=== PATIENT | female | born 1965 | race African-American/Black ===

== ENCOUNTER 2023-05-15 13:33 | Emergency (ER) | payer MEDICAID ==
[~2023-05-15] VITALS: Ht 162.6 cm; Wt 144.0 kg
[2023-05-15 13:40] VITALS: O2SAT 97
[2023-05-15] MEDS ORDERED: KETOROLAC 60MG/2ML VIAL IM STA (14:41)
[2023-05-15 16:01] LABS: BASOPHILS % 0.7 % (0.0-2.0); EOSINOPHILS % 1.8 % (0.0-5.0); HEMATOCRIT. 33.4 % (36.0-48.0); HEMOGLOBIN. 10.9 g/dL (12.0-16.0); LYMPHOCYTES % 16.1 % (20.0-50.0); MEAN CORPUSCULAR HEMOGLOBIN 30.5 pg (28.0-32.0); MEAN CORPUSCULAR HGB CONC 32.5 g/dL (31.0-37.0); MEAN CORPUSCULAR VOLUME 93.8 fL (81.0-99.0); MEAN PLATELET VOLUME 9.7 fl (7.4-10.4); MONOCYTES % 11.9 % (2.0-8.0); NEUTROPHILS % 69.5 % (40.0-76.0); PLATELET 305 x1000/uL (130-400); RED BLOOD CELL COUNT 3.57 mill/uL (4.2-5.4); RED CELL DISTRIBUTION WIDTH 13.4 % (11.6-14.6); WHITE BLOOD COUNT 8.3 x1000/uL (4.5-11.0)
[2023-05-15 16:31] LABS: ALANINE AMINOTRANSFERASE 24 IU/L (10-49); ALBUMIN 3.5 g/dL (3.2-4.8); ASPARTATE AMINOTRANSFERASE 23 IU/L (<34); BILIRUBIN TOTAL 0.6 mg/dL (0.1-1.0); CALCIUM 11.7 mg/dL (8.7-10.4); CARBON DIOXIDE 25 mEq/L (21-32); CHLORIDE 106 mEq/L (98-107); CREATININE 1.7 mg/dL (0.6-1.0); GLUCOSE 124 mg/dL (70-105); POTASSIUM 3.9 mEq/L (3.5-5.1); PROTEIN TOTAL 7.3 g/dL (6.0-8.3); SODIUM 139 mEq/L (136-145); UREA NITROGEN BLOOD 19 mg/dL (9-23)
[2023-05-15] MEDS ORDERED: SODIUM CHLORIDE 0.9% 1,000 ML IV ONE (17:15)
[2023-05-15 19:18] LABS: CLARITY URINE TURBID (CLEAR); COLOR URINE YELLOW (YELLOW); GLUCOSE URINE NEGATIVE (NEGATIVE); KETONES URINE NEGATIVE (NEGATIVE); LEUKOCYTE ESTERASE URINE 2+ (NEGATIVE); NITRITE URINE NEGATIVE (NEGATIVE); OCCULT BLOOD URINE 1+ (NEGATIVE); PROTEIN URINE 2+ (NEGATIVE); SPECIFIC GRAVITY URINE 1.021 (1.005-1.030)
[2023-05-15 19:56] LABS: BACTERIA URINE 1+; RBC URINE 0-2 /hpf (0-2); SQUAMOUS EPITHELIAL CELL URINE 2+ /lpf (RARE/1+)
[2023-05-15 20:26] VITALS: BP 149/89; PULSE 92; RESP 16; TEMP 98.9
[2023-05-15] MEDS ORDERED: LIDOCAINE HCL 1% 20ML VIAL (Pyxis) INJ INFIL ONE (20:30)
[2023-05-15] MEDS ORDERED: CEFTRIAXONE SODIUM 1 G/VIAL IM ONE (20:30)
[2023-05-15] MEDS ORDERED: CIPR500T5 MT (20:31)
[2023-05-15] MEDS ORDERED: IBUP-2028 MT (20:31)
[2023-05-15] MEDS ORDERED: TAMS-11 MT (20:31)
== END 2023-05-15 19:00 | disposition home or self-care (01) ==
LOC: ER 13:33 → EDBEDREQ 17:13 → ER 19:00 → CANBEDREQ 05-16 14:15
DX: N23 Unspecified renal colic (principal); N20.0 Calculus of kidney; R11.2 Nausea with vomiting, unspecified; N39.0 Urinary tract infection, site not specified; E11.9 Type 2 diabetes mellitus without complications; I10 Essential (primary) hypertension
CPT/HCPCS: 80053; 81003; 83690; 85025; 36415; 74176; 96372; 99285; 83970; J0696; J1885; J3490; J7030; Z7610

== ENCOUNTER 2023-06-04 18:36 | Inpatient (IN) | payer OTHER ==
[~2023-06-04] VITALS: Ht 162.6 cm; Wt 138.0 kg
[~2023-06-04 18:36] MED LIST: CIPR500T5 MT; IBUP-2028 MT; TAMS-11 MT
[2023-06-04] MEDS ORDERED: ONDANSETRON HCL 4MG/2ML INJ IV STA (19:03)
[2023-06-04] MEDS ORDERED: MORPHINE SULFATE 4 MG/ML CPJ (NOT FOR IM USE) IV STA (19:03)
[2023-06-04] MEDS ORDERED: DILTIAZEM HCL 60MG TABLET PO ONE (19:15)
[2023-06-04] MEDS ORDERED: SODIUM CHLORIDE 0.9% 1,000 ML IV ONE (19:15)
[2023-06-04 19:52] LABS: BASOPHILS % 0.3 % (0.0-2.0); EOSINOPHILS % 0.7 % (0.0-5.0); HEMATOCRIT. 34.9 % (36.0-48.0); HEMOGLOBIN. 11.5 g/dL (12.0-16.0); LYMPHOCYTES % 9.6 % (20.0-50.0); MEAN CORPUSCULAR HEMOGLOBIN 30.2 pg (28.0-32.0); MEAN CORPUSCULAR HGB CONC 32.9 g/dL (31.0-37.0); MEAN CORPUSCULAR VOLUME 91.7 fL (81.0-99.0); MEAN PLATELET VOLUME 9.6 fl (7.4-10.4); MONOCYTES % 10.6 % (2.0-8.0); NEUTROPHILS % 78.8 % (40.0-76.0); PLATELET 260 x1000/uL (130-400); RED CELL DISTRIBUTION WIDTH 13.6 % (11.6-14.6)
[2023-06-04 21:24] LABS: ALANINE AMINOTRANSFERASE 50 IU/L (10-49); ALBUMIN 3.5 g/dL (3.2-4.8); ASPARTATE AMINOTRANSFERASE 84 IU/L (<34); BILIRUBIN TOTAL 0.9 mg/dL (0.1-1.0); CALCIUM 12.8 mg/dL (8.7-10.4); CARBON DIOXIDE 24 mEq/L (21-32); CHLORIDE 103 mEq/L (98-107); GLUCOSE 186 mg/dL (70-105); POTASSIUM 3.5 mEq/L (3.5-5.1); PROTEIN TOTAL 7.1 g/dL (6.0-8.3); SODIUM 138 mEq/L (136-145); UREA NITROGEN BLOOD 21 mg/dL (9-23)
[2023-06-04 21:40] LABS: TROPONIN I HIGH SENSITIVITY 84 ng/L (3.0-34)
[2023-06-04 21:48] LABS: CREATINE KINASE 1794 IU/L (34-145)
[2023-06-05] VITALS (7 sets, daily range): BP systolic 130–148; BP diastolic 53–81; PULSE 73–91; RESP 16–24; TEMP 96.5–98.8; O2SAT 97
[2023-06-05] MEDS ORDERED: ASPIRIN 81MG TABLET PO ONE (00:45)
[2023-06-05] MEDS ORDERED: SODIUM CHLORIDE 0.9% 1,000 ML IV ONE (00:45)
[2023-06-05] MEDS ORDERED: ONDANSETRON HCL 4MG/2ML INJ IV PRN (04:30)
[2023-06-05] MEDS ORDERED: DEXTROSE 50% WATER 50ML SYRINGE IV PRN (04:30)
[2023-06-05] MEDS ORDERED: ACETAMINOPHEN 325MG TABLET PO PRN (04:30)
[2023-06-05] MEDS: BLOOD SUGAR DIAGNOSTIC STRIP TEST SCH ×4 (06:50→21:00)
[2023-06-05] MEDS: INSULIN LISPRO 100 UNITS/ML SUBCUT SCH ×4 (07:15→22:28)
[2023-06-05 08:07] LABS: BASOPHILS % 0.5 % (0.0-2.0); EOSINOPHILS % 2.7 % (0.0-5.0); HEMATOCRIT. 33.4 % (36.0-48.0); HEMOGLOBIN. 10.8 g/dL (12.0-16.0); LYMPHOCYTES % 17.4 % (20.0-50.0); MEAN CORPUSCULAR HEMOGLOBIN 30.5 pg (28.0-32.0); MEAN CORPUSCULAR HGB CONC 32.3 g/dL (31.0-37.0); MEAN CORPUSCULAR VOLUME 94.1 fL (81.0-99.0); MEAN PLATELET VOLUME 10.1 fl (7.4-10.4); MONOCYTES % 13.2 % (2.0-8.0); NEUTROPHILS % 66.2 % (40.0-76.0); PLATELET 235 x1000/uL (130-400); RED BLOOD CELL COUNT 3.54 mill/uL (4.2-5.4); RED CELL DISTRIBUTION WIDTH 13.8 % (11.6-14.6); WHITE BLOOD COUNT 9.5 x1000/uL (4.5-11.0)
[2023-06-05] MEDS: ENOXAPARIN 40MG/0.4ML SYR SUBCUT SCH ×2 (08:54→21:34)
[2023-06-05] MEDS: LEVETIRACETAM 500MG TABLET PO SCH ×2 (08:54→21:33)
[2023-06-05] MEDS ORDERED: ASPIRIN 81MG TABLET PO SCH (09:00)
[2023-06-05] MEDS ORDERED: AMLODIPINE 5MG TABLET PO SCH (09:00)
[2023-06-05 10:48] LABS: CALCIUM 12.5 mg/dL (8.7-10.4); CREATININE 2.1 mg/dL (0.6-1.0); POTASSIUM 3.9 mEq/L (3.5-5.1)
[2023-06-05 13:29] LABS: CREATINE KINASE 605 IU/L (34-145)
[2023-06-05] MEDS ORDERED: SODIUM CHLORIDE 0.45% 1,000 ML IV SCH (14:00)
[2023-06-05 14:36] LABS: TROPONIN I HIGH SENSITIVITY 2673 ng/L (3.0-34)
[2023-06-05] MEDS: NITROGLYCERIN OINT 1GM/INCH UDPKT TD SCH ×2 (17:40→21:35)
[2023-06-05 18:06] LABS: *AMPHETAMINES SCREEN URINE NEGATIVE (NEGATIVE); *BARBITURATES SCREEN URINE NEGATIVE (NEGATIVE); *BENZODIAZEPINES SCREEN URINE NEGATIVE (NEGATIVE); *COCAINE SCREEN URINE NEGATIVE (NEGATIVE); CANNABINOID URINE SCREEN NEGATIVE (NEGATIVE); ECSTASY MDMA SCREEN URINE NEGATIVE (NEGATIVE); METHADONE URINE SCREEN Neg (NEGATIVE); OPIATES URINE SCREEN PRESUMPTIVE POSITIVE (NEGATIVE); PHENCYCLIDINE URINE SCREEN NEGATIVE (NEGATIVE)
[2023-06-05] MEDS ORDERED: ATORVASTATIN CALCIUM 20MG TABLET PO SCH (21:00)
== END 2023-06-06 02:30 | disposition short-term general hospital (02) | DRG 558 ==
LOC: ER 18:36 → EDBEDREQ 06-05 00:46 → MICUSO 06-05 02:14 → 3WST 06-05 03:09
PROVIDERS: ADMIT Internal Medicine; ATTEND Internal Medicine
DX: M62.82 Rhabdomyolysis (principal); I5A Non-ischemic myocardial injury (non-traumatic); Z68.43 Body mass index [BMI] 50.0-59.9, adult; N17.9 Acute kidney failure, unspecified; D64.9 Anemia, unspecified; E11.65 Type 2 diabetes mellitus with hyperglycemia; E66.01 Morbid (severe) obesity due to excess calories; E78.00 Pure hypercholesterolemia, unspecified; G40.909 Epilepsy, unspecified, not intractable, without status epilepticus; Z20.822 Contact with and (suspected) exposure to COVID-19; I10 Essential (primary) hypertension; N28.9 Disorder of kidney and ureter, unspecified; R74.01 Elevation of levels of liver transaminase levels; Z79.82 Long term (current) use of aspirin; Z86.73 Personal history of transient ischemic attack (TIA), and cerebral infarction without residual deficits; Z91.148 Patient's other noncompliance with medication regimen for other reason; Z79.899 Other long term (current) drug therapy
CPT/HCPCS: 36415; 71045; 72192; 73552; 73560; 80048; 80053; 80061; 80305; 82550; 82962; 83036; 84145; 84484; 85025; 87426; 93005; 97166; 97535; 99285; J1650; J1815; J2270; J2405; J7030

== ENCOUNTER 2023-09-10 20:16 | Inpatient (IN) | payer OTHER ==
[~2023-09-10] VITALS: Ht 162.6 cm; Wt 113.4 kg
[2023-09-10] MEDS: IBUPROFEN 600MG TABLET PO ONE (21:09)
[2023-09-11 00:18] LABS: HEMATOCRIT. 44.8 % (36.0-48.0); HEMOGLOBIN. 14.3 g/dL (12.0-16.0); MEAN CORPUSCULAR HEMOGLOBIN 30.9 pg (28.0-32.0); MEAN CORPUSCULAR HGB CONC 31.9 g/dL (31.0-37.0); MEAN CORPUSCULAR VOLUME 96.9 fL (81.0-99.0); MEAN PLATELET VOLUME 9.9 fl (7.4-10.4); PLATELET 184 x1000/uL (130-400); RED BLOOD CELL COUNT 4.62 mill/uL (4.2-5.4); RED CELL DISTRIBUTION WIDTH 16.4 % (11.6-14.6); WHITE BLOOD COUNT 8.7 x1000/uL (4.5-11.0)
[2023-09-11 00:29] LABS: INR 1.1; PARTIAL THROMBOPLASTIN TIME 21.8 sec (23.4-31.0); PROTHROMBIN TIME 11.9 sec (9.6-11.0)
[2023-09-11 00:30] LABS: DIFFERENTIAL COMMENT 1
[2023-09-11 00:34] LABS: ALANINE AMINOTRANSFERASE 7 IU/L (10-49); ASPARTATE AMINOTRANSFERASE 16 IU/L (<34); CARBON DIOXIDE 19 mEq/L (21-32); CHLORIDE 111 mEq/L (98-107); CREATINE KINASE 72 IU/L (34-145); GLUCOSE 67 mg/dL (70-105); POTASSIUM 4.2 mEq/L (3.5-5.1); SODIUM 140 mEq/L (136-145); UREA NITROGEN BLOOD 49 mg/dL (9-23)
[2023-09-11 00:44] LABS: CREATININE 4.5 mg/dL (0.6-1.0); PROTEIN TOTAL 9.2 g/dL (6.0-8.3)
[2023-09-11 00:46] LABS: CALCIUM 14.6 mg/dL (8.7-10.4)
[2023-09-11] MEDS: SODIUM CHLORIDE 0.9% 1,000 ML IV ONE (01:13)
[2023-09-11 01:37] LABS: PLATELET ESTIMATE NORMAL
[2023-09-11 08:00] VITALS: BP 146/92; TEMP 98.6
[2023-09-11] MEDS ORDERED: DEXTROSE 50% WATER 50ML SYRINGE IV PRN (08:45)
[2023-09-11] MEDS: HYDRALAZINE 20MG/ML VIAL IV PRN (08:59)
[2023-09-11] MEDS: DEXTROSE 50% WATER 50ML SYRINGE IV PRN (08:59)
[2023-09-11] MEDS ORDERED: NALOXONE HCL 0.4MG/ML VIAL IV PRN (09:00)
[2023-09-11] MEDS: HYDROCODONE/ACETAMINOPHEN 5/325MG TABLET PO PRN (09:35)
[2023-09-11] MEDS ORDERED: ACETAMINOPHEN 325MG TABLET PO PRN (10:45)
[2023-09-11] MEDS ORDERED: DOCUSATE SODIUM 100MG CAPSULE PO PRN (10:45)
[2023-09-11] MEDS ORDERED: LEVETIRACETAM 500 MG in SODIUM CHLORIDE 0.9% 100 ML IV SCH (10:45)
[2023-09-11] MEDS ORDERED: IPRATROPIUM/ALBUTEROL 0.5-3(2.5)MG/3ML NEB HHN PRN (10:45)
[2023-09-11 10:51] VITALS: BP 132/85; PULSE 70; RESP 18; TEMP 98.5
[2023-09-11 12:00] VITALS: BP 132/85; TEMP 98.6
[2023-09-11] MEDS: INSULIN LISPRO 100 UNITS/ML SUBCUT SCH (12:10)
[2023-09-11] MEDS: BLOOD SUGAR DIAGNOSTIC STRIP TEST SCH (12:32)
[2023-09-11] MEDS: DEXT 5%/0.45% NACL 1000ML 1,000 ML IV SCH ×2 (13:18→20:00)
[2023-09-11] MEDS: LEVETIRACETAM 500MG PREMIX 100 ML IV SCH (13:18)
[2023-09-11] MEDS: ASPIRIN 81MG TABLET PO SCH (13:18)
[2023-09-11] MEDS: PAMIDRONATE DISODIUM 30 MG in SODIUM CHLORIDE 0.9% 500 ML IV NR (14:00)
[2023-09-11] MEDS: HYDRALAZINE HCL 50MG TABLET PO SCH (14:00)
[2023-09-11 16:00] VITALS: BP 104/66; TEMP 98.5
[2023-09-11] MEDS: PANTOPRAZOLE SODIUM 40 MG/VIAL IV SCH (16:15)
[2023-09-11 16:18] LABS: BASOPHILS % 0.3 % (0.0-2.0); EOSINOPHILS % 3.6 % (0.0-5.0); HEMATOCRIT. 40.3 % (36.0-48.0); HEMOGLOBIN. 12.8 g/dL (12.0-16.0); LYMPHOCYTES % 11.2 % (20.0-50.0); MEAN CORPUSCULAR HEMOGLOBIN 30.4 pg (28.0-32.0); MEAN CORPUSCULAR HGB CONC 31.9 g/dL (31.0-37.0); MEAN CORPUSCULAR VOLUME 95.3 fL (81.0-99.0); MONOCYTES % 14.9 % (2.0-8.0); PLATELET 167 x1000/uL (130-400); RED BLOOD CELL COUNT 4.23 mill/uL (4.2-5.4); RED CELL DISTRIBUTION WIDTH 16.3 % (11.6-14.6); WHITE BLOOD COUNT 8.1 x1000/uL (4.5-11.0)
[2023-09-11 16:31] LABS: ALANINE AMINOTRANSFERASE < 7 IU/L (10-49); ALBUMIN 3.5 g/dL (3.2-4.8); ASPARTATE AMINOTRANSFERASE 14 IU/L (<34); BILIRUBIN TOTAL 0.7 mg/dL (0.1-1.0); CARBON DIOXIDE 18 mEq/L (21-32); CHLORIDE 112 mEq/L (98-107); CHOLESTEROL 161 mg/dL (<200); CREATININE 4.8 mg/dL (0.6-1.0); GLUCOSE 71 mg/dL (70-105); HDL CHOLESTEROL 49 mg/dL (>65); LDL CHOLESTEROL 72 mg/dL (5-100); PHOSPHORUS 2.6 mg/dL (2.5-4.9); POTASSIUM 4.3 mEq/L (3.5-5.1); PROTEIN TOTAL 8.3 g/dL (6.0-8.3); SODIUM 140 mEq/L (136-145); T4 FREE 1.08 ng/dL (0.89-1.76); THYROID STIMULATING HORMONE 0.62 uIU/mL (0.55-4.78); TRIGLYCERIDE 148 mg/dL (0-150); UREA NITROGEN BLOOD 44 mg/dL (9-23)
[2023-09-11 16:35] LABS: CALCIUM 14.1 mg/dL (8.7-10.4)
[2023-09-11] MEDS ORDERED: ENOXAPARIN 30MG/0.3ML SYR SUBCUT SCH (18:00)
[2023-09-11 20:00] VITALS: BP 147/76; PULSE 80; RESP 20; TEMP 96.6
[2023-09-11 21:48] LABS: CLARITY URINE CLOUDY (CLEAR); COLOR URINE DARK YELLOW (YELLOW); GLUCOSE URINE NEGATIVE (NEGATIVE); KETONES URINE TRACE (NEGATIVE); LEUKOCYTE ESTERASE URINE 2+ (NEGATIVE); NITRITE URINE NEGATIVE (NEGATIVE); OCCULT BLOOD URINE 1+ (NEGATIVE); PROTEIN URINE 1+ (NEGATIVE); SPECIFIC GRAVITY URINE 1.019 (1.005-1.030)
[2023-09-11 22:06] LABS: *AMPHETAMINES SCREEN URINE NEGATIVE (NEGATIVE); *BARBITURATES SCREEN URINE NEGATIVE (NEGATIVE); *BENZODIAZEPINES SCREEN URINE NEGATIVE (NEGATIVE); *COCAINE SCREEN URINE NEGATIVE (NEGATIVE); CANNABINOID URINE SCREEN NEGATIVE (NEGATIVE); ECSTASY MDMA SCREEN URINE NEGATIVE (NEGATIVE); METHADONE URINE SCREEN Neg (NEGATIVE); OPIATES URINE SCREEN NEGATIVE (NEGATIVE); PHENCYCLIDINE URINE SCREEN NEGATIVE (NEGATIVE)
[2023-09-11 22:13] LABS: BACTERIA URINE TRACE; CALCIUM PHOSPHATE CRYSTALS UR 2+ /lpf; SQUAMOUS EPITHELIAL CELL URINE FEW /lpf (RARE/1+)
[2023-09-11] MEDS: TAMSULOSIN HCL 0.4MG SR CAPSULE PO SCH (22:55)
[2023-09-11] MEDS: ATORVASTATIN CALCIUM 40MG TABLET PO SCH (22:56)
[2023-09-12] VITALS (7 sets, daily range): BP systolic 117–140; BP diastolic 37–81; PULSE 83–96; RESP 18–20; TEMP 96.2–98.6
[2023-09-12 06:48] LABS: BASOPHILS % 0.5 % (0.0-2.0); EOSINOPHILS % 4.5 % (0.0-5.0); HEMATOCRIT. 39.6 % (36.0-48.0); HEMOGLOBIN. 12.5 g/dL (12.0-16.0); LYMPHOCYTES % 24.5 % (20.0-50.0); MEAN CORPUSCULAR HEMOGLOBIN 30.7 pg (28.0-32.0); MEAN CORPUSCULAR HGB CONC 31.6 g/dL (31.0-37.0); MEAN PLATELET VOLUME 10.1 fl (7.4-10.4); MONOCYTES % 13.6 % (2.0-8.0); NEUTROPHILS % 56.9 % (40.0-76.0); PLATELET 153 x1000/uL (130-400); RED BLOOD CELL COUNT 4.08 mill/uL (4.2-5.4); WHITE BLOOD COUNT 6.3 x1000/uL (4.5-11.0)
[2023-09-12 07:28] LABS: CREATININE 4.7 mg/dL (0.6-1.0); POTASSIUM 4.2 mEq/L (3.5-5.1)
[2023-09-12] MEDS ORDERED: LIDOCAINE HCL 1% 10 MG/ML 10ML VIAL ONE (07:44)
[2023-09-12 07:58] LABS: CALCIUM 13.6 mg/dL (8.7-10.4)
[2023-09-12] MEDS: ENOXAPARIN 40MG/0.4ML SYR SUBCUT SCH (09:00)
[2023-09-12 12:33] LABS: CREATINE KINASE 20 IU/L (34-145)
[2023-09-12] MEDS: ENOXAPARIN 80MG/0.8ML SYR SUBCUT NR (12:43)
[2023-09-12] MEDS: PAMIDRONATE DISODIUM 30 MG in SODIUM CHLORIDE 0.9% 500 ML IV NR (13:18)
[2023-09-13 00:37] VITALS: BP 136/70; PULSE 96; RESP 18; TEMP 98.7
[2023-09-13 04:00] VITALS: BP 132/72; PULSE 88; RESP 19; TEMP 98.6
[2023-09-13 08:00] VITALS: BP 162/74; PULSE 88; RESP 19; TEMP 97.2
[2023-09-13] MEDS: ENOXAPARIN 120MG/0.8ML SYR SUBCUT SCH (08:11)
[2023-09-13] MEDS: FAMOTIDINE 20MG TABLET PO SCH (08:11)
[2023-09-13] MEDS: CLONIDINE 0.1MG TABLET PO PRN (08:11)
[2023-09-13] MEDS ORDERED: FAMOTIDINE 20MG/2ML VIAL IV SCH (09:00)
[2023-09-13 09:40] LABS: HEMATOCRIT. 36.4 % (36.0-48.0); HEMOGLOBIN. 11.5 g/dL (12.0-16.0); MEAN CORPUSCULAR HEMOGLOBIN 30.6 pg (28.0-32.0); MEAN CORPUSCULAR HGB CONC 31.7 g/dL (31.0-37.0); MEAN CORPUSCULAR VOLUME 96.4 fL (81.0-99.0); PLATELET 151 x1000/uL (130-400); RED BLOOD CELL COUNT 3.78 mill/uL (4.2-5.4); RED CELL DISTRIBUTION WIDTH 16.6 % (11.6-14.6); WHITE BLOOD COUNT 4.9 x1000/uL (4.5-11.0)
[2023-09-13 09:49] LABS: DIFFERENTIAL COMMENT 1
[2023-09-13 10:05] LABS: ALANINE AMINOTRANSFERASE < 7 IU/L (10-49); ALBUMIN 2.9 g/dL (3.2-4.8); ASPARTATE AMINOTRANSFERASE 10 IU/L (<34); BILIRUBIN TOTAL 0.6 mg/dL (0.1-1.0); CALCIUM 12.2 mg/dL (8.7-10.4); CARBON DIOXIDE 19 mEq/L (21-32); CHLORIDE 112 mEq/L (98-107); GLUCOSE 111 mg/dL (70-105); POTASSIUM 3.7 mEq/L (3.5-5.1); PROTEIN TOTAL 6.5 g/dL (6.0-8.3); SODIUM 139 mEq/L (136-145); UREA NITROGEN BLOOD 39 mg/dL (9-23)
[2023-09-13 12:00] VITALS: BP 148/75; PULSE 83; RESP 18; TEMP 96.9
[2023-09-13 16:00] VITALS: BP_SYST 116; BP_SYST 128; BP_DIAS 60; BP_DIAS 88; PULSE 82; RESP 16; TEMP 96.9
[2023-09-13 20:00] VITALS: BP 170/93; PULSE 92; RESP 20; TEMP 98.8
[2023-09-13 20:01] LABS: ANISOCYTOSIS 1+; PLATELET ESTIMATE NORMAL
[2023-09-14 00:10] VITALS: BP 130/68; PULSE 62; RESP 20; TEMP 98.7
[2023-09-14 04:00] VITALS: BP 151/84; PULSE 94; RESP 20; TEMP 97.6
[2023-09-14 07:03] LABS: HEMATOCRIT. 32.5 % (36.0-48.0); HEMOGLOBIN. 10.6 g/dL (12.0-16.0); MEAN CORPUSCULAR HEMOGLOBIN 30.4 pg (28.0-32.0); MEAN CORPUSCULAR HGB CONC 32.6 g/dL (31.0-37.0); MEAN CORPUSCULAR VOLUME 93.4 fL (81.0-99.0); MEAN PLATELET VOLUME 9.6 fl (7.4-10.4); PLATELET 152 x1000/uL (130-400); RED BLOOD CELL COUNT 3.47 mill/uL (4.2-5.4); RED CELL DISTRIBUTION WIDTH 16.3 % (11.6-14.6); WHITE BLOOD COUNT 5.3 x1000/uL (4.5-11.0)
[2023-09-14 07:10] LABS: DIFFERENTIAL COMMENT 1
[2023-09-14 07:17] LABS: CALCIUM 11.9 mg/dL (8.7-10.4); CREATININE 3.6 mg/dL (0.6-1.0); POTASSIUM 3.4 mEq/L (3.5-5.1)
[2023-09-14 08:00] VITALS: BP 142/77; PULSE 87; RESP 20; TEMP 98.1
[2023-09-14] MEDS: ONDANSETRON HCL 4MG/2ML INJ IV PRN (11:13)
[2023-09-14] MEDS: POTASSIUM CHLORIDE 20MEQ TABLET SR PO NR (12:48)
[2023-09-14 16:00] VITALS: BP_SYST 138; BP_SYST 159; BP_DIAS 69; BP_DIAS 85; PULSE 88; PULSE 91; RESP 20; TEMP 97.9; TEMP 98.6
[2023-09-14 20:00] VITALS: BP 156/75; PULSE 84; RESP 18; TEMP 98
[2023-09-14 21:58] LABS: ANISOCYTOSIS 1+; PLATELET ESTIMATE NORMAL
[2023-09-15] VITALS (7 sets, daily range): BP systolic 114–196; BP diastolic 62–116; PULSE 72–126; RESP 16–18; TEMP 97.8–98.8
[2023-09-15] MEDS: ENOXAPARIN 120MG/0.8ML SYR SUBCUT SCH (08:51)
[2023-09-15 14:09] LABS: A/G RATIO 0.6 (0.7-1.7); ALBUMIN 2.7 g/dL (2.9-4.4); ALPHA-1-GLOBULIN 0.3 g/dL (0.0-0.4); ALPHA-2-GLOBULIN 0.8 g/dL (0.4-1.0); BETA GLOBULIN 1.5 g/dL (0.7-1.3); GLOBULIN TOTAL 4.7 g/dL (2.2-3.9); M-SPIKE Not Observed g/dL (Not Observed); TOTAL PROTEIN SERUM 7.4 g/dL (6.0-8.5)
[2023-09-15 16:08] LABS: HEMATOCRIT. 32.1 % (36.0-48.0); HEMOGLOBIN. 10.5 g/dL (12.0-16.0); MEAN CORPUSCULAR HEMOGLOBIN 31.1 pg (28.0-32.0); MEAN CORPUSCULAR HGB CONC 32.6 g/dL (31.0-37.0); MEAN CORPUSCULAR VOLUME 95.4 fL (81.0-99.0); PLATELET 156 x1000/uL (130-400); RED BLOOD CELL COUNT 3.37 mill/uL (4.2-5.4); WHITE BLOOD COUNT 5.8 x1000/uL (4.5-11.0)
[2023-09-15 16:11] LABS: DIFFERENTIAL COMMENT 1
[2023-09-15 16:28] LABS: CALCIUM 10.9 mg/dL (8.7-10.4); CREATININE 3.1 mg/dL (0.6-1.0); POTASSIUM 3.6 mEq/L (3.5-5.1)
[2023-09-15 16:31] LABS: PLATELET ESTIMATE NORMAL
[2023-09-15] MEDS: HYDRALAZINE 20MG/ML VIAL IV NR (17:09)
[2023-09-16] VITALS: BP 152/74; PULSE 98; RESP 16; TEMP 97.7
[2023-09-16 04:00] VITALS: BP 156/87; PULSE 96; RESP 18; TEMP 97.9
[2023-09-16 06:34] LABS: HEMATOCRIT. 32.6 % (36.0-48.0); HEMOGLOBIN. 10.6 g/dL (12.0-16.0); MEAN CORPUSCULAR HEMOGLOBIN 30.5 pg (28.0-32.0); MEAN CORPUSCULAR HGB CONC 32.5 g/dL (31.0-37.0); MEAN CORPUSCULAR VOLUME 93.9 fL (81.0-99.0); MEAN PLATELET VOLUME 9.6 fl (7.4-10.4); PLATELET 173 x1000/uL (130-400); RED BLOOD CELL COUNT 3.47 mill/uL (4.2-5.4); RED CELL DISTRIBUTION WIDTH 16.8 % (11.6-14.6); WHITE BLOOD COUNT 5.7 x1000/uL (4.5-11.0)
[2023-09-16 07:05] LABS: CALCIUM 10.8 mg/dL (8.7-10.4); POTASSIUM 3.7 mEq/L (3.5-5.1)
[2023-09-16 07:18] LABS: DIFFERENTIAL COMMENT 1
[2023-09-16 08:00] VITALS: BP 137/70; PULSE 97; RESP 18; TEMP 98.1
[2023-09-16] MEDS: SODIUM BICARBONATE 8.4% 1 MEQ/ML 50ML SYR IV NR (11:27)
[2023-09-16] MEDS: CEFTRIAXONE 1GM/50ML 50 ML IV SCH (11:40)
[2023-09-16 12:00] VITALS: BP 143/80; PULSE 103; RESP 20; TEMP 97.9
[2023-09-16 16:00] VITALS: BP 120/75; PULSE 97; RESP 18; TEMP 96.2
[2023-09-16 16:59] LABS: ANISOCYTOSIS 1+; PLATELET ESTIMATE NORMAL
[2023-09-16 20:00] VITALS: BP 176/91; PULSE 94; RESP 18; TEMP 97.2
[2023-09-17] VITALS: BP 149/63; PULSE 98; RESP 19; TEMP 97.7
[2023-09-17 08:00] VITALS: BP 158/67; PULSE 89; RESP 18; TEMP 97.8
[2023-09-17] MEDS ORDERED: PROPOFOL 200MG/20ML VIAL IV ONE ×2 (08:54)
[2023-09-17] MEDS ORDERED: LIDOCAINE HCL 1% 10 MG/ML 10ML VIAL ONE ×2 (08:54→08:56)
[2023-09-17] MEDS: HYDRALAZINE 20MG/ML VIAL IV PRN (09:50)
[2023-09-17] MEDS ORDERED: ONDANSETRON HCL 4MG/2ML INJ IV PRN (10:00)
[2023-09-17 12:00] VITALS: BP 162/84; PULSE 92; RESP 20; TEMP 97.6
[2023-09-17 13:18] LABS: HEMOGLOBIN. 10.3 g/dL (12.0-16.0); MEAN CORPUSCULAR HEMOGLOBIN 30.2 pg (28.0-32.0); MEAN CORPUSCULAR HGB CONC 32.1 g/dL (31.0-37.0); MEAN CORPUSCULAR VOLUME 93.8 fL (81.0-99.0); MEAN PLATELET VOLUME 9.5 fl (7.4-10.4); PLATELET 167 x1000/uL (130-400); RED BLOOD CELL COUNT 3.41 mill/uL (4.2-5.4); RED CELL DISTRIBUTION WIDTH 16.8 % (11.6-14.6)
[2023-09-17 13:38] LABS: CALCIUM 10.3 mg/dL (8.7-10.4); CREATININE 2.7 mg/dL (0.6-1.0); POTASSIUM 3.6 mEq/L (3.5-5.1)
[2023-09-17 13:59] LABS: DIFFERENTIAL COMMENT 1
[2023-09-17 16:00] VITALS: BP 139/62; PULSE 97; RESP 18; TEMP 98.1
[2023-09-17 17:54] LABS: GIANT PLATELETS 1+; PLATELET ESTIMATE NORMAL
[2023-09-17 20:00] VITALS: BP 156/83; PULSE 89; RESP 19; TEMP 98.1
[2023-09-18] VITALS: BP 168/82; PULSE 94; RESP 19; TEMP 97.7
[2023-09-18 04:00] VITALS: BP 126/67; PULSE 76; RESP 19; TEMP 97.2
[2023-09-18 07:12] LABS: MEAN CORPUSCULAR HGB CONC 32.2 g/dL (31.0-37.0); MEAN CORPUSCULAR VOLUME 96.2 fL (81.0-99.0); MEAN PLATELET VOLUME 9.8 fl (7.4-10.4); PLATELET 151 x1000/uL (130-400); RED BLOOD CELL COUNT 3.22 mill/uL (4.2-5.4); WHITE BLOOD COUNT 4.6 x1000/uL (4.5-11.0)
[2023-09-18 07:32] LABS: CALCIUM 10.1 mg/dL (8.7-10.4); CREATININE 2.6 mg/dL (0.6-1.0); POTASSIUM 3.9 mEq/L (3.5-5.1)
[2023-09-18 07:34] LABS: DIFFERENTIAL COMMENT 1
[2023-09-18 08:00] VITALS: BP 136/82; PULSE 82; RESP 20; TEMP 97.9
[2023-09-18 12:00] VITALS: BP 180/72; PULSE 78; RESP 18; TEMP 98.1
[2023-09-18] MEDS ORDERED: SODIUM BICARBONATE 8.4% 1 MEQ/ML 50ML SYR IV NR (13:30)
[2023-09-18 16:00] VITALS: BP 181/80; PULSE 81; RESP 18; TEMP 97.9
[2023-09-18 17:36] LABS: PLATELET ESTIMATE NORMAL
[2023-09-18 20:00] VITALS: BP 189/78; PULSE 81; RESP 19; TEMP 97.1
[2023-09-19] VITALS (7 sets, daily range): BP systolic 153–182; BP diastolic 51–80; PULSE 64–100; RESP 17–19; TEMP 96.7–97.9
[2023-09-19 12:58] LABS: DIFFERENTIAL COMMENT 1; HEMATOCRIT. 32.8 % (36.0-48.0); HEMOGLOBIN. 10.6 g/dL (12.0-16.0); MEAN CORPUSCULAR HEMOGLOBIN 30.3 pg (28.0-32.0); MEAN CORPUSCULAR HGB CONC 32.4 g/dL (31.0-37.0); MEAN CORPUSCULAR VOLUME 93.7 fL (81.0-99.0); MEAN PLATELET VOLUME 9.6 fl (7.4-10.4); PLATELET 171 x1000/uL (130-400); RED CELL DISTRIBUTION WIDTH 16.5 % (11.6-14.6); WHITE BLOOD COUNT 4.1 x1000/uL (4.5-11.0)
[2023-09-19 13:16] LABS: ALANINE AMINOTRANSFERASE < 7 IU/L (10-49); ALBUMIN 2.6 g/dL (3.2-4.8); ASPARTATE AMINOTRANSFERASE 19 IU/L (<34); BILIRUBIN TOTAL 0.4 mg/dL (0.1-1.0); CALCIUM 9.6 mg/dL (8.7-10.4); CARBON DIOXIDE 19 mEq/L (21-32); CHLORIDE 112 mEq/L (98-107); CREATININE 2.4 mg/dL (0.6-1.0); GLUCOSE 79 mg/dL (70-105); POTASSIUM 3.4 mEq/L (3.5-5.1); PROTEIN TOTAL 5.9 g/dL (6.0-8.3); SODIUM 138 mEq/L (136-145); UREA NITROGEN BLOOD 23 mg/dL (9-23)
[2023-09-19] MEDS: FUROSEMIDE 40MG/4ML VIAL IVP SCH (14:12)
[2023-09-20] VITALS: BP 182/75; PULSE 78; RESP 18; TEMP 97.6
[2023-09-20 01:04] LABS: ANISOCYTOSIS 1+; PLATELET ESTIMATE NORMAL
[2023-09-20 04:00] VITALS: BP_SYST 141; PULSE 71; RESP 17; TEMP 96.9
[2023-09-20 07:11] LABS: HEMATOCRIT. 31.7 % (36.0-48.0); HEMOGLOBIN. 10.6 g/dL (12.0-16.0); MEAN CORPUSCULAR HEMOGLOBIN 30.8 pg (28.0-32.0); MEAN CORPUSCULAR HGB CONC 33.4 g/dL (31.0-37.0); MEAN CORPUSCULAR VOLUME 92.3 fL (81.0-99.0); MEAN PLATELET VOLUME 9.5 fl (7.4-10.4); PLATELET 173 x1000/uL (130-400); RED BLOOD CELL COUNT 3.44 mill/uL (4.2-5.4)
[2023-09-20 07:22] LABS: DIFFERENTIAL COMMENT 1
[2023-09-20 08:00] VITALS: BP 101/73; PULSE 73; RESP 18; TEMP 98
[2023-09-20 08:13] LABS: ALANINE AMINOTRANSFERASE < 7 IU/L (10-49); ALBUMIN 2.4 g/dL (3.2-4.8); ASPARTATE AMINOTRANSFERASE 16 IU/L (<34); BILIRUBIN TOTAL 0.4 mg/dL (0.1-1.0); CALCIUM 9.5 mg/dL (8.7-10.4); CARBON DIOXIDE 20 mEq/L (21-32); CHLORIDE 111 mEq/L (98-107); CREATININE 2.3 mg/dL (0.6-1.0); GLUCOSE 75 mg/dL (70-105); POTASSIUM 3.3 mEq/L (3.5-5.1); PROTEIN TOTAL 5.7 g/dL (6.0-8.3); SODIUM 139 mEq/L (136-145); UREA NITROGEN BLOOD 23 mg/dL (9-23)
[2023-09-20] MEDS: ENOXAPARIN 120MG/0.8ML SYR SUBCUT SCH (08:35)
[2023-09-20 12:00] VITALS: BP 142/57; PULSE 74; RESP 20; TEMP 98
[2023-09-20] MEDS: POTASSIUM CHLORIDE 20MEQ TABLET SR PO SCH (13:10)
[2023-09-20 16:00] VITALS: BP 177/75; PULSE 71; RESP 18; TEMP 97.9
[2023-09-20 17:11] LABS: ANISOCYTOSIS 1+; PLATELET ESTIMATE NORMAL
[2023-09-20 20:00] VITALS: BP 148/89; PULSE 77; RESP 18; TEMP 97.5
[2023-09-21] VITALS: BP 152/70; PULSE 87; RESP 18; TEMP 97.7
[2023-09-21 08:00] VITALS: BP 172/75; PULSE 77; RESP 18; TEMP 97.5
[2023-09-21 08:01] LABS: BASOPHILS % 0.9 % (0.0-2.0); EOSINOPHILS % 4.1 % (0.0-5.0); HEMATOCRIT. 31.8 % (36.0-48.0); HEMOGLOBIN. 10.5 g/dL (12.0-16.0); LYMPHOCYTES % 13.3 % (20.0-50.0); MEAN CORPUSCULAR HEMOGLOBIN 30.6 pg (28.0-32.0); MEAN CORPUSCULAR VOLUME 92.5 fL (81.0-99.0); MEAN PLATELET VOLUME 9.8 fl (7.4-10.4); MONOCYTES % 13.6 % (2.0-8.0); NEUTROPHILS % 68.1 % (40.0-76.0); PLATELET 163 x1000/uL (130-400); RED BLOOD CELL COUNT 3.44 mill/uL (4.2-5.4); RED CELL DISTRIBUTION WIDTH 16.5 % (11.6-14.6); WHITE BLOOD COUNT 4.4 x1000/uL (4.5-11.0)
[2023-09-21 08:58] LABS: CALCIUM 9.6 mg/dL (8.7-10.4); CREATININE 2.2 mg/dL (0.6-1.0); POTASSIUM 3.7 mEq/L (3.5-5.1)
[2023-09-21 12:00] VITALS: BP 154/71; PULSE 79; RESP 18; TEMP 97.7
[2023-09-21 16:00] VITALS: BP 182/79; PULSE 74; RESP 20; TEMP 97.9
[2023-09-21] MEDS: HYDRALAZINE HCL 50MG TABLET PO SCH (18:07)
[2023-09-21 20:00] VITALS: BP 185/92; PULSE 81; RESP 17; TEMP 97.2
[2023-09-22 00:01] VITALS: BP 188/93; PULSE 92; RESP 18; TEMP 97
[2023-09-22 04:00] VITALS: BP 160/81; PULSE 83; RESP 18; TEMP 97
[2023-09-22 05:54] LABS: HEMOGLOBIN. 10.5 g/dL (12.0-16.0); MEAN CORPUSCULAR HEMOGLOBIN 30.3 pg (28.0-32.0); MEAN CORPUSCULAR HGB CONC 32.9 g/dL (31.0-37.0); MEAN CORPUSCULAR VOLUME 92.3 fL (81.0-99.0); MEAN PLATELET VOLUME 9.9 fl (7.4-10.4); PLATELET 186 x1000/uL (130-400); RED BLOOD CELL COUNT 3.47 mill/uL (4.2-5.4); RED CELL DISTRIBUTION WIDTH 16.4 % (11.6-14.6); WHITE BLOOD COUNT 4.4 x1000/uL (4.5-11.0)
[2023-09-22 05:58] LABS: CALCIUM 9.8 mg/dL (8.7-10.4); CREATININE 2.1 mg/dL (0.6-1.0); POTASSIUM 3.6 mEq/L (3.5-5.1)
[2023-09-22 06:39] LABS: DIFFERENTIAL COMMENT 1
[2023-09-22 08:00] VITALS: BP 169/90; PULSE 82; RESP 18; TEMP 97.7
[2023-09-22] MEDS: ACETAMINOPHEN 325MG TABLET PO PRN (09:30)
[2023-09-22 12:00] VITALS: BP 180/78; PULSE 87; RESP 18; TEMP 97.5
[2023-09-22 16:00] VITALS: BP 159/75; PULSE 85; RESP 18; TEMP 98.1
[2023-09-22 17:04] LABS: ANISOCYTOSIS 1+; PLATELET ESTIMATE NORMAL
[2023-09-22 20:00] VITALS: BP 169/73; PULSE 79; RESP 18; TEMP 97.9
[2023-09-23] VITALS: BP 185/54; PULSE 80; RESP 18; TEMP 97.6
[2023-09-23 04:00] VITALS: BP 156/70; PULSE 82; RESP 16; TEMP 97.9
[2023-09-23 08:00] VITALS: BP 189/87; PULSE 85; RESP 18; TEMP 97.9
[2023-09-23 12:00] VITALS: BP 189/86; PULSE 89; RESP 18; TEMP 96
[2023-09-23 14:04] LABS: CALCIUM 9.7 mg/dL (8.7-10.4); POTASSIUM 2.9 mEq/L (3.5-5.1)
[2023-09-23 16:00] VITALS: BP 132/71; PULSE 132; RESP 19; TEMP 96.1
[2023-09-23 20:00] VITALS: BP 182/80; PULSE 100; RESP 20; TEMP 98.1
[2023-09-23] MEDS ORDERED: CARVEDILOL 3.125 MG TABLET PO SCH (21:00)
[2023-09-23] MEDS: CARVEDILOL 6.25 MG TABLET PO SCH (21:40)
[2023-09-23] MEDS: POTASSIUM CHLORIDE 20MEQ/PACKET PO NR (21:40)
[2023-09-23] MEDS: ENOXAPARIN 120MG/0.8ML SYR SUBCUT SCH (21:41)
[2023-09-24] VITALS: BP 174/72; PULSE 84; RESP 22; TEMP 98.2
[2023-09-24 04:00] VITALS: BP 144/63; PULSE 85; RESP 20; TEMP 98
[2023-09-24 07:23] LABS: BASOPHILS % 0.8 % (0.0-2.0); EOSINOPHILS % 1.5 % (0.0-5.0); HEMATOCRIT. 29.6 % (36.0-48.0); HEMOGLOBIN. 9.8 g/dL (12.0-16.0); LYMPHOCYTES % 10.1 % (20.0-50.0); MEAN CORPUSCULAR HEMOGLOBIN 30.9 pg (28.0-32.0); MEAN CORPUSCULAR HGB CONC 33.2 g/dL (31.0-37.0); MEAN CORPUSCULAR VOLUME 93.1 fL (81.0-99.0); MEAN PLATELET VOLUME 9.9 fl (7.4-10.4); MONOCYTES % 11.7 % (2.0-8.0); NEUTROPHILS % 75.9 % (40.0-76.0); PLATELET 220 x1000/uL (130-400); RED BLOOD CELL COUNT 3.18 mill/uL (4.2-5.4); RED CELL DISTRIBUTION WIDTH 15.8 % (11.6-14.6); WHITE BLOOD COUNT 6.5 x1000/uL (4.5-11.0)
[2023-09-24 07:45] LABS: CALCIUM 9.3 mg/dL (8.7-10.4); CREATININE 1.9 mg/dL (0.6-1.0); POTASSIUM 3.2 mEq/L (3.5-5.1)
[2023-09-24 08:00] VITALS: BP 102/60; PULSE 85; RESP 18; TEMP 97.9
[2023-09-24] MEDS: POTASSIUM CHLORIDE 20MEQ TABLET SR PO NR (10:32)
[2023-09-24 12:00] VITALS: BP 186/77; PULSE 93; RESP 18; TEMP 97.7
[2023-09-24 16:00] VITALS: BP 186/59; PULSE 79; RESP 18; TEMP 97.7
[2023-09-24 20:00] VITALS: BP 139/76; PULSE 96; RESP 18; TEMP 98
[2023-09-25] VITALS: BP 212/81; PULSE 96; RESP 22; TEMP 98.6
[2023-09-25 04:00] VITALS: BP 147/66; PULSE 85; RESP 20; TEMP 98
[2023-09-25 08:00] VITALS: BP 168/74; PULSE 87; RESP 19; TEMP 98.4
[2023-09-25 12:00] VITALS: BP 165/66; PULSE 68; RESP 18; TEMP 98.1
[2023-09-25 16:00] VITALS: BP 151/69; PULSE 75; RESP 18; TEMP 97.7
[2023-09-25 20:00] VITALS: BP 161/64; PULSE 79; RESP 20; TEMP 98.8
[2023-09-26] VITALS: BP 169/78; PULSE 79; RESP 20; TEMP 98.8
[2023-09-26 04:00] VITALS: BP 145/61; PULSE 76; RESP 20; TEMP 98.2
[2023-09-26 08:00] VITALS: BP 145/72; PULSE 77; RESP 18; TEMP 97.6
[2023-09-26 12:00] VITALS: BP 142/71; PULSE 75; RESP 18; TEMP 98.3
[2023-09-26 12:21] LABS: HEMATOCRIT. 27.5 % (36.0-48.0); HEMOGLOBIN. 9.1 g/dL (12.0-16.0); MEAN CORPUSCULAR HEMOGLOBIN 30.2 pg (28.0-32.0); MEAN CORPUSCULAR VOLUME 91.5 fL (81.0-99.0); MEAN PLATELET VOLUME 9.5 fl (7.4-10.4); PLATELET 168 x1000/uL (130-400); RED BLOOD CELL COUNT 3.01 mill/uL (4.2-5.4); RED CELL DISTRIBUTION WIDTH 15.7 % (11.6-14.6); WHITE BLOOD COUNT 4.3 x1000/uL (4.5-11.0)
[2023-09-26 12:30] LABS: DIFFERENTIAL COMMENT 1
[2023-09-26 12:35] LABS: ALANINE AMINOTRANSFERASE 7 IU/L (10-49); ALBUMIN 2.5 g/dL (3.2-4.8); ASPARTATE AMINOTRANSFERASE 17 IU/L (<34); BILIRUBIN TOTAL 0.4 mg/dL (0.1-1.0); CALCIUM 9.3 mg/dL (8.7-10.4); CARBON DIOXIDE 23 mEq/L (21-32); CHLORIDE 110 mEq/L (98-107); GLUCOSE 84 mg/dL (70-105); POTASSIUM 2.9 mEq/L (3.5-5.1); PROTEIN TOTAL 6.2 g/dL (6.0-8.3); SODIUM 141 mEq/L (136-145); UREA NITROGEN BLOOD 15 mg/dL (9-23)
[2023-09-26 15:56] VITALS: BP 127/55; PULSE 82; RESP 14; TEMP 97.3
[2023-09-26] MEDS: POTASSIUM CHLORIDE 20MEQ/PACKET PO NR (16:51)
[2023-09-26 20:00] VITALS: BP 172/87; PULSE 82; RESP 17; TEMP 97.9
[2023-09-27] VITALS: BP 146/73; PULSE 70; RESP 18; TEMP 97.7
[2023-09-27 01:06] LABS: PLATELET ESTIMATE NORMAL
[2023-09-27 04:00] VITALS: BP 155/70; PULSE 70; RESP 18; TEMP 97.8
[2023-09-27 07:50] VITALS: BP 159/82; PULSE 81; RESP 16; TEMP 97.6
[2023-09-27 12:08] VITALS: BP 140/60; PULSE 76; RESP 18; TEMP 97.9
[2023-09-27 15:41] VITALS: BP 150/62; PULSE 78; RESP 16; TEMP 98.1
[2023-09-27 20:00] VITALS: BP 163/82; PULSE 81; RESP 20; TEMP 97.1
[2023-09-28] VITALS (7 sets, daily range): BP systolic 128–172; BP diastolic 56–82; PULSE 55–83; RESP 18–20; TEMP 96.9–98.1
[2023-09-28] MEDS: HYDRALAZINE HCL 25MG TABLET PO SCH (06:29)
[2023-09-28 22:21] LABS: CALCIUM 8.6 mg/dL (8.7-10.4); CREATININE 1.9 mg/dL (0.6-1.0); POTASSIUM 3.1 mEq/L (3.5-5.1)
[2023-09-29] VITALS (7 sets, daily range): BP systolic 133–173; BP diastolic 6–81; PULSE 70–86; RESP 19–20; TEMP 96.7–97.9
[2023-09-29 08:47] LABS: HEMATOCRIT. 29.9 % (36.0-48.0); HEMOGLOBIN. 9.8 g/dL (12.0-16.0); MEAN CORPUSCULAR HEMOGLOBIN 31.1 pg (28.0-32.0); MEAN CORPUSCULAR HGB CONC 32.8 g/dL (31.0-37.0); MEAN CORPUSCULAR VOLUME 94.8 fL (81.0-99.0); MEAN PLATELET VOLUME 9.5 fl (7.4-10.4); PLATELET 218 x1000/uL (130-400); RED BLOOD CELL COUNT 3.15 mill/uL (4.2-5.4); RED CELL DISTRIBUTION WIDTH 15.7 % (11.6-14.6); WHITE BLOOD COUNT 4.8 x1000/uL (4.5-11.0)
[2023-09-29 08:48] LABS: CALCIUM 9.1 mg/dL (8.7-10.4); CREATININE 1.9 mg/dL (0.6-1.0)
[2023-09-29 09:07] LABS: DIFFERENTIAL COMMENT 1
[2023-09-29 13:57] LABS: ATYPICAL LYMPHOCYTES 1; PLATELET ESTIMATE NORMAL
[2023-09-29] MEDS: POTASSIUM CHLORIDE 20MEQ TABLET SR PO SCH (14:09)
[2023-09-30] VITALS: BP 155/76; PULSE 82; RESP 19; TEMP 98.1
[2023-09-30 04:00] VITALS: BP 162/82; PULSE 84; RESP 19; TEMP 98.4
[2023-09-30 08:00] VITALS: BP 138/69; PULSE 89; RESP 19; TEMP 97.1
[2023-09-30 12:00] VITALS: BP 154/67; PULSE 79; RESP 19; TEMP 97.3
[2023-09-30] MEDS: HYDRALAZINE HCL 100MG TABLET PO SCH (14:12)
[2023-09-30] MEDS ORDERED: HYDRALAZINE 10 MG in SODIUM CHLORIDE 0.9% 49.5 ML IV PRN (15:45)
[2023-09-30 16:00] VITALS: BP 120/62; PULSE 82; RESP 19; TEMP 97.1
[2023-09-30 20:00] VITALS: BP 155/75; PULSE 81; RESP 19; TEMP 96.6
[2023-09-30 22:01] LABS: HEMATOCRIT. 30.2 % (36.0-48.0); HEMOGLOBIN. 9.9 g/dL (12.0-16.0); MEAN CORPUSCULAR HEMOGLOBIN 30.9 pg (28.0-32.0); MEAN CORPUSCULAR HGB CONC 32.7 g/dL (31.0-37.0); MEAN CORPUSCULAR VOLUME 94.6 fL (81.0-99.0); MEAN PLATELET VOLUME 9.8 fl (7.4-10.4); PLATELET 239 x1000/uL (130-400); WHITE BLOOD COUNT 5.2 x1000/uL (4.5-11.0)
[2023-09-30] MEDS: FAMOTIDINE 20MG TABLET PO SCH (22:01)
[2023-09-30 22:04] LABS: CALCIUM 8.8 mg/dL (8.7-10.4); CREATININE 1.8 mg/dL (0.6-1.0); POTASSIUM 3.4 mEq/L (3.5-5.1)
[2023-09-30 22:05] LABS: DIFFERENTIAL COMMENT 1
[2023-09-30 22:27] LABS: PLATELET ESTIMATE NORMAL
[2023-10-01] VITALS: BP 150/82; PULSE 84; RESP 19; TEMP 97.7
[2023-10-01 04:00] VITALS: BP 158/84; PULSE 78; RESP 19; TEMP 97.8
[2023-10-01 07:07] LABS: HEMATOCRIT. 26.9 % (36.0-48.0); HEMOGLOBIN. 8.9 g/dL (12.0-16.0); MEAN CORPUSCULAR HEMOGLOBIN 30.8 pg (28.0-32.0); MEAN CORPUSCULAR HGB CONC 33.3 g/dL (31.0-37.0); MEAN CORPUSCULAR VOLUME 92.5 fL (81.0-99.0); MEAN PLATELET VOLUME 9.7 fl (7.4-10.4); PLATELET 216 x1000/uL (130-400); RED BLOOD CELL COUNT 2.91 mill/uL (4.2-5.4); RED CELL DISTRIBUTION WIDTH 16.4 % (11.6-14.6); WHITE BLOOD COUNT 4.9 x1000/uL (4.5-11.0)
[2023-10-01 07:21] LABS: DIFFERENTIAL COMMENT 1
[2023-10-01 08:00] VITALS: BP 113/67; PULSE 82; RESP 21; TEMP 97.7
[2023-10-01 08:02] LABS: POTASSIUM 3.3 mEq/L (3.5-5.1)
[2023-10-01 08:03] LABS: CALCIUM 8.6 mg/dL (8.7-10.4); CREATININE 1.6 mg/dL (0.6-1.0)
[2023-10-01] MEDS: DEXT 5%/0.45% NACL 1000ML 1,000 ML IV SCH (10:34)
[2023-10-01 12:00] VITALS: BP 115/66; PULSE 80; RESP 20; TEMP 97.4
[2023-10-01 16:36] LABS: PLATELET ESTIMATE NORMAL
[2023-10-01] MEDS: POTASSIUM CHLORIDE 20MEQ TABLET SR PO SCH (17:38)
[2023-10-01 20:00] VITALS: BP 124/58; PULSE 92; RESP 16; TEMP 97.6
[2023-10-02] VITALS: BP 107/62; PULSE 79; RESP 18; TEMP 98.2
[2023-10-02 04:00] VITALS: BP 149/58; PULSE 81; RESP 19; TEMP 97
[2023-10-02 06:40] LABS: HEMATOCRIT. 27.3 % (36.0-48.0); MEAN CORPUSCULAR HEMOGLOBIN 31.2 pg (28.0-32.0); MEAN CORPUSCULAR HGB CONC 32.8 g/dL (31.0-37.0); MEAN PLATELET VOLUME 10.5 fl (7.4-10.4); PLATELET 206 x1000/uL (130-400); RED BLOOD CELL COUNT 2.87 mill/uL (4.2-5.4); RED CELL DISTRIBUTION WIDTH 15.9 % (11.6-14.6); WHITE BLOOD COUNT 5.5 x1000/uL (4.5-11.0)
[2023-10-02 07:28] LABS: CALCIUM 8.4 mg/dL (8.7-10.4); CREATININE 1.8 mg/dL (0.6-1.0); POTASSIUM 3.3 mEq/L (3.5-5.1)
[2023-10-02 08:00] VITALS: BP 133/50; PULSE 77; RESP 19; TEMP 97.5
[2023-10-02 08:47] LABS: DIFFERENTIAL COMMENT 1
[2023-10-02 12:00] VITALS: BP 146/79; PULSE 87; RESP 19; TEMP 97.6
[2023-10-02 16:00] VITALS: BP 124/65; PULSE 84; RESP 18; TEMP 96.5
[2023-10-02 18:38] LABS: ANISOCYTOSIS 1+; PLATELET ESTIMATE NORMAL
[2023-10-02 20:00] VITALS: BP 122/50; PULSE 88; RESP 17; TEMP 98.9
[2023-10-03] VITALS: BP 127/79; PULSE 88; RESP 16; TEMP 97.4
[2023-10-03 04:00] VITALS: BP 118/70; PULSE 64; RESP 18; TEMP 98.2
[2023-10-03 08:00] VITALS: BP 134/68; PULSE 79; RESP 18; TEMP 97.2
[2023-10-03 12:00] VITALS: BP 133/61; PULSE 74; RESP 19; TEMP 96.3
[2023-10-03 16:00] VITALS: BP 165/56; PULSE 77; RESP 18; TEMP 96.6
[2023-10-03 20:00] VITALS: BP 116/59; PULSE 88; RESP 18; TEMP 96.3
[2023-10-04] VITALS: BP 161/64; PULSE 62; RESP 18; TEMP 96.8
[2023-10-04 04:00] VITALS: BP 130/64; PULSE 85; RESP 18; TEMP 97.7
[2023-10-04 08:00] VITALS: BP 135/75; PULSE 88; RESP 18; TEMP 97.7
[2023-10-04 12:00] VITALS: BP 146/75; PULSE 87; RESP 18; TEMP 98.1
[2023-10-04 16:00] VITALS: BP 135/51; PULSE 78; RESP 18; TEMP 95.5
[2023-10-04 20:00] VITALS: BP 142/62; PULSE 91; RESP 19; TEMP 97.9
[2023-10-05] VITALS: BP 148/74; PULSE 92; RESP 19; TEMP 98.8
[2023-10-05 04:00] VITALS: BP 124/66; PULSE 89; RESP 19; TEMP 97.9
[2023-10-05 07:28] LABS: CREATININE 2.2 mg/dL (0.6-1.0)
[2023-10-05 07:30] LABS: HEMATOCRIT. 27.3 % (36.0-48.0); MEAN CORPUSCULAR HEMOGLOBIN 31.3 pg (28.0-32.0); MEAN CORPUSCULAR HGB CONC 32.9 g/dL (31.0-37.0); MEAN CORPUSCULAR VOLUME 94.9 fL (81.0-99.0); MEAN PLATELET VOLUME 10.7 fl (7.4-10.4); PLATELET 208 x1000/uL (130-400); RED BLOOD CELL COUNT 2.88 mill/uL (4.2-5.4); RED CELL DISTRIBUTION WIDTH 16.3 % (11.6-14.6); WHITE BLOOD COUNT 5.7 x1000/uL (4.5-11.0)
[2023-10-05 07:42] LABS: DIFFERENTIAL COMMENT 1
[2023-10-05 08:00] VITALS: BP 144/68; PULSE 95; RESP 19; TEMP 98.6
[2023-10-05 12:00] VITALS: BP 140/68; PULSE 87; RESP 19; TEMP 97.5
[2023-10-05 13:20] LABS: ANISOCYTOSIS 1+; PLATELET ESTIMATE NORMAL
[2023-10-05 16:00] VITALS: BP 120/84; PULSE 98; RESP 21; TEMP 97.5
[2023-10-05 20:00] VITALS: BP 134/72; PULSE 88; RESP 19; TEMP 96.7
[2023-10-05] MEDS: ENOXAPARIN 120MG/0.8ML SYR SUBCUT SCH (21:36)
[2023-10-06] VITALS: BP 115/35; PULSE 92; RESP 19; TEMP 98.4
[2023-10-06 08:00] VITALS: BP 115/63; PULSE 91; RESP 17; TEMP 96.9
[2023-10-06] MEDS: FUROSEMIDE 20MG/2ML VIAL IV SCH (09:58)
[2023-10-06 10:08] LABS: A/G RATIO 0.5 (0.7-1.7); ALBUMIN 1.8 g/dL (2.9-4.4); ALPHA-1-GLOBULIN 0.2 g/dL (0.0-0.4); ALPHA-2-GLOBULIN 0.6 g/dL (0.4-1.0); BETA GLOBULIN 0.8 g/dL (0.7-1.3); GAMMA GLOBULINS 1.9 g/dL (0.4-1.8); GLOBULIN TOTAL 3.5 g/dL (2.2-3.9); M-SPIKE Not Observed g/dL (Not Observed); TOTAL PROTEIN SERUM 5.3 g/dL (6.0-8.5)
[2023-10-06 11:17] LABS: HEMATOCRIT. 27.4 % (36.0-48.0); HEMOGLOBIN. 9.1 g/dL (12.0-16.0); MEAN CORPUSCULAR HEMOGLOBIN 31.6 pg (28.0-32.0); MEAN CORPUSCULAR HGB CONC 33.2 g/dL (31.0-37.0); MEAN CORPUSCULAR VOLUME 95.1 fL (81.0-99.0); MEAN PLATELET VOLUME 9.7 fl (7.4-10.4); PLATELET 230 x1000/uL (130-400); RED BLOOD CELL COUNT 2.88 mill/uL (4.2-5.4); WHITE BLOOD COUNT 5.8 x1000/uL (4.5-11.0)
[2023-10-06 11:22] LABS: DIFFERENTIAL COMMENT 1
[2023-10-06 11:36] LABS: POTASSIUM 4.3 mEq/L (3.5-5.1)
[2023-10-06 11:42] LABS: CREATININE 2.3 mg/dL (0.6-1.0)
[2023-10-06 12:00] VITALS: BP 122/71; PULSE 81; RESP 18; TEMP 96.9
[2023-10-06 14:22] LABS: ANISOCYTOSIS 1+; PLATELET ESTIMATE NORMAL
[2023-10-06 16:00] VITALS: BP 98/49; PULSE 84; RESP 19; TEMP 98.8
[2023-10-06 20:00] VITALS: BP 141/54; PULSE 91; RESP 18; TEMP 97.3
[2023-10-07] VITALS: BP 122/65; PULSE 96; RESP 18; TEMP 97.7
[2023-10-07 04:00] VITALS: BP 125/49; PULSE 95; RESP 18; TEMP 97.6
[2023-10-07 08:00] VITALS: BP 119/61; PULSE 90; RESP 19; TEMP 97.7
[2023-10-07 16:00] VITALS: BP 123/69; PULSE 78; RESP 18; TEMP 97.6
[2023-10-07 17:23] VITALS: BP 123/69; PULSE 78; TEMP 97.6; O2SAT 99
[2023-10-07 20:00] VITALS: BP 146/73; PULSE 89; RESP 19; TEMP 100.4
[2023-10-08] VITALS: BP 128/66; PULSE 85; RESP 19; TEMP 99.1
[2023-10-08 04:00] VITALS: BP 118/58; PULSE 84; RESP 19; TEMP 99.9
[2023-10-08 08:00] VITALS: BP 115/64; PULSE 86; RESP 21; TEMP 97.7
[2023-10-08] MEDS ORDERED: PIPERACILLIN/TAZO 3.375G/50ML 50 ML IV SCH (08:00)
[2023-10-08 09:13] VITALS: PULSE 84
[2023-10-08 09:36] LABS: HEMATOCRIT. 28.7 % (36.0-48.0); MEAN CORPUSCULAR HEMOGLOBIN 30.6 pg (28.0-32.0); MEAN CORPUSCULAR HGB CONC 31.5 g/dL (31.0-37.0); PLATELET 219 x1000/uL (130-400); RED BLOOD CELL COUNT 2.96 mill/uL (4.2-5.4); RED CELL DISTRIBUTION WIDTH 16.5 % (11.6-14.6); WHITE BLOOD COUNT 5.2 x1000/uL (4.5-11.0)
[2023-10-08 09:42] LABS: DIFFERENTIAL COMMENT 1
[2023-10-08 10:06] LABS: CARBON DIOXIDE 22 mEq/L (21-32); CHLORIDE 108 mEq/L (98-107); POTASSIUM 3.9 mEq/L (3.5-5.1); SODIUM 137 mEq/L (136-145)
[2023-10-08 10:07] LABS: CALCIUM 8.9 mg/dL (8.7-10.4)
[2023-10-08 10:12] LABS: CREATININE 2.4 mg/dL (0.6-1.0); GLUCOSE 70 mg/dL (70-105); UREA NITROGEN BLOOD 13 mg/dL (9-23)
[2023-10-08 10:13] LABS: ALANINE AMINOTRANSFERASE 11 IU/L (10-49); ASPARTATE AMINOTRANSFERASE 33 IU/L (<34)
[2023-10-08 10:14] LABS: ALBUMIN 2.5 g/dL (3.2-4.8); BILIRUBIN TOTAL 0.4 mg/dL (0.1-1.0); PROTEIN TOTAL 6.2 g/dL (6.0-8.3)
[2023-10-08 11:18] LABS: PLATELET ESTIMATE NORMAL
[2023-10-08 11:19] LABS: ANISOCYTOSIS 1+
[2023-10-08] MEDS: AMOXICILLIN/POTASSIUM CLAVULANATE 875/125MG TAB PO SCH (12:51)
== END 2023-10-08 14:34 | DRG 92 ==
LOC: ER 20:16 → 7EST 09-11 03:09 → 8WST 09-14 18:11 → 6EST 09-29 00:19
PROVIDERS: ADMIT Internal Medicine; ATTEND Internal Medicine
PROC: 02HV33Z Insertion of Infusion Device into Superior Vena Cava, Percutaneous Approach (ICD-10-PCS; 2023-09-12)
PROC: B548ZZA Ultrasonography of Superior Vena Cava, Guidance (ICD-10-PCS; 2023-09-12)
PROC: B5181ZA Fluoroscopy of Superior Vena Cava using Low Osmolar Contrast, Guidance (ICD-10-PCS; 2023-09-12)
PROC: 4A00X4Z Measurement of Central Nervous Electrical Activity, External Approach (ICD-10-PCS; principal; 2023-09-17)
PROC: 079T3ZX Drainage of Bone Marrow, Percutaneous Approach, Diagnostic (ICD-10-PCS; 2023-09-17)
DX: G92.8 Other toxic encephalopathy (principal); I82.492 Acute embolism and thrombosis of other specified deep vein of left lower extremity; M87.9 Osteonecrosis, unspecified; Z68.41 Body mass index [BMI] 40.0-44.9, adult; N17.9 Acute kidney failure, unspecified; N20.2 Calculus of kidney with calculus of ureter; E11.649 Type 2 diabetes mellitus with hypoglycemia without coma; E11.22 Type 2 diabetes mellitus with diabetic chronic kidney disease; N18.9 Chronic kidney disease, unspecified; I12.9 Hypertensive chronic kidney disease with stage 1 through stage 4 chronic kidney disease, or unspecified chronic kidney disease; E87.6 Hypokalemia; R74.01 Elevation of levels of liver transaminase levels; L01.00 Impetigo, unspecified; G40.909 Epilepsy, unspecified, not intractable, without status epilepticus; E83.52 Hypercalcemia; E66.9 Obesity, unspecified; E78.5 Hyperlipidemia, unspecified; Z86.73 Personal history of transient ischemic attack (TIA), and cerebral infarction without residual deficits; W18.30XA Fall on same level, unspecified, initial encounter; Y93.89 Activity, other specified; Y92.009 Unspecified place in unspecified non-institutional (private) residence as the place of occurrence of the external cause; Y99.8 Other external cause status
CPT/HCPCS: 36415; 36573; 38220; 70551; 71045; 71250; 72192; 73502; 73700; 74176; 76770; 78580; 80048; 80053; 80061; 80305; 81003; 82330; 82550; 82962; 83036; 83970; 84100; 84145; 84155; 84165; 84439; 84443; 84480; 85025; 85060; 85097; 86850; 86900; 93005; 93970; 95816; 97110; 97116; 97162; 97166; 97530; 97535; 99285; A4565; A6261; C1725; C1893; C9113; J0360; J0696; J1650; J1940; J1953; J2405; J2430; J2543; J2704; J3490; J7030; J7040